=== PATIENT | female | born 1950 | race Caucasian/White ===

== ENCOUNTER → 2020-08-06 | Outpatient (CLI) | payer MEDICARE | END | disposition home or self-care (01) | LOC: CFH 07:55 | DX: Z13.820 Encounter for screening for osteoporosis (principal); N63.22 Unspecified lump in the left breast, upper inner quadrant; M85.88 Other specified disorders of bone density and structure, other site; R92.2 Inconclusive mammogram; N95.9 Unspecified menopausal and perimenopausal disorder | CPT/HCPCS: 76642; 77080; 77066 ==

== ENCOUNTER → 2020-08-23 | Outpatient (CLI) | payer MEDICARE ==
[~2020-08-23] MED LIST: LIDOCAINE 1%, 20ML ONE; LIDOCAINE 1%-EPI 1:100K, 20ML ONE; SODIUM BICARBONATE 4.2%, 5ML ONE
== END | disposition home or self-care (01) ==
LOC: CFH 12:07
DX: N63.22 Unspecified lump in the left breast, upper inner quadrant (principal); D24.2 Benign neoplasm of left breast
CPT/HCPCS: 19083; 88305; 77065